=== PATIENT | female | born 1950 | race Caucasian/White ===

== ENCOUNTER 2021-07-14 23:08 | Emergency (ER) | payer OTHER ==
[~2021-07-14] VITALS: Ht 162.6 cm; Wt 75.7 kg
[2021-07-14 23:08] VITALS: BP_SYST 145
--- NOTE | 2021-07-15 01:03 | NUR ---
ER Dr. PEREZ at bedside examining patient.
[2021-07-15] MEDS ORDERED: IBUPROFEN 600 MG TABLET PO ONE ×2 (01:15→01:30)
--- NOTE | 2021-07-15 01:17 | NUR ---
Received patient to ER w/ c/o right facial periorbital pain w/ swelling and bruising and right knee pain w/ swelling and bruising s/p trip and fall. Denies any ko. Patient resting quietly. No acute distress noted. Vital signs within normal range. Introduced self to patient, positioned for comfort. continue to monitor. Medicated w/ motrin 600mg per MD orders. Will cont to monitor and observe for any adverse reaction. Knee Immobolizer applied to right knee. DP/PT pulse noted. Capillary refill <3seconds. Patient has ability to move toes. Has sensation present to affected site. Skin color within normal limits. Crutches properly fitted for patient by EMT Landon. Patient given crutch walking instructions and demonstration. Is able to demonstrate adequate crutch walking technique with crutches provided.
--- NOTE | 2021-07-15 01:30 | NUR ---
Patient transported to radiology via wheelchair, accompanied by reactor technician.
--- NOTE | 2021-07-15 01:37 | NUR ---
Returned from radiology, back to [facility].
[2021-07-15] MEDS ORDERED: NAPR-686 PO (02:46)
[2021-07-15 03:12] VITALS: BP_SYST 147
--- NOTE | 2021-07-15 03:12 | NUR ---
Patient given written and verbal discharge instructions and verbalizes understanding. ER MD discussed with patient the results and treatment provided. Patient in stable condition. ID arm band removed. Rx of Naproxen given. Patient educated on pain management and to follow up with PMD. Pain Scale 5. Opportunity for questions provided and answered. Medication side effect fact sheet provided.
== END 2021-07-15 03:12 | disposition home or self-care (01) ==
LOC: SED 23:08
DX: S00.83XA Contusion of other part of head, initial encounter (principal); M25.461 Effusion, right knee; I10 Essential (primary) hypertension; Z88.8 Allergy status to other drugs, medicaments and biological substances; Z79.899 Other long term (current) drug therapy; W18.39XA Other fall on same level, initial encounter; Y93.89 Activity, other specified; Y92.89 Other specified places as the place of occurrence of the external cause; Y99.8 Other external cause status
CPT/HCPCS: 70150-TC; 73564; 99284